=== PATIENT | male | born 1940 | race Caucasian/White ===

== ENCOUNTER 2017-11-23 11:26 | Inpatient (IN) | payer BC ==
[2017-11-23] MEDS: IV NORMAL SALINE 1000ML BAG 1,000 ML IV ×3 (12:28→20:20)
[2017-11-23 12:34] LABS: BASO % 0 % (0-3); EOS % 0 % (0-3); HEMATOCRIT 40.5 % (39.0-53.0); HEMOGLOBIN 13.4 g/dL (13.0-17.5); LYMPH # 0.4 x10^3/uL (1.0-4.8); LYMPH % 2 % (24-48); MEAN CORPUSCULAR HEMOGLOBIN 31 pg (25-35); MEAN CORPUSCULAR HGB CONC 33 g/dL (31-37); MEAN CORPUSCULAR VOLUME 93 fL (79-100); MONO # 0.5 x10^3/uL (0.0-1.1); MONO % 3 % (0-9); NEUT # 16.7 x10^3uL (1.8-7.7); NEUT % 95 % (31-73); PLATELET COUNT 229 x10^3/uL (140-400); RED BLOOD COUNT 4.35 x10^6/uL (4.30-5.70); RED CELL DISTRIBUTION WIDTH 14.5 % (11.5-14.5); WHITE BLOOD COUNT 17.6 x10^3/uL (4.0-11.0)
[2017-11-23 12:39] LABS: ADD MAN DIFF? YES
[2017-11-23 12:49] LABS: ANION GAP 11 (6-14); BLOOD UREA NITROGEN 27 mg/dL (8-26); BUN/CREATININE RATIO 21 (6-20); CALCIUM 9.2 mg/dL (8.5-10.1); CARBON DIOXIDE 26 mmol/L (21-32); CHLORIDE 101 mmol/L (98-107); CREATININE 1.3 mg/dL (0.7-1.3); GFR 53.8; GLUCOSE 140 mg/dL (70-99); POTASSIUM 3.6 mmol/L (3.5-5.1); SODIUM 138 mmol/L (136-145)
[2017-11-23 12:55] LABS: ALBUMIN 2.1 g/dL (3.4-5.0); ALBUMIN/GLOBULIN RATIO 0.4 (1.0-1.7); ALK PHOS 150 U/L (46-116); ALT (SGPT) 66 U/L (16-63); AST (SGOT) 80 U/L (15-37); LIPASE 239 U/L (73-393); TOTAL BILIRUBIN 2.2 mg/dL (0.2-1.0); TOTAL PROTEIN 7.3 g/dL (6.4-8.2)
[2017-11-23 12:58] LABS: CLARITY,URINE CLEAR; COLOR,URINE ORANGE; GLUCOSE,URINE NEGATIVE (NEG); NITRITE,URINE NEGATIVE (NEG); PH,URINE 5.5; PROTEIN,URINE 100 mg/dL (NEG-TRACE)
[2017-11-23 13:03] LABS: TROPONINI < 0.017 ng/mL (0.000-0.055)
[2017-11-23 13:08] LABS: SQUAMOUS EPITHELIAL CELL,UR OCC /LPF
[2017-11-23 13:12] LABS: INFLUENZA A PATIENT NEGATIVE (NEGATIVE); INFLUENZA B PATIENT NEGATIVE (NEGATIVE); OBC FLU VALID
[2017-11-23 13:15] LABS: BACTERIA,URINE FEW /HPF (0-FEW); RBC,URINE OCC /HPF (0-2)
[2017-11-23] MEDS ORDERED: CONTRAST GIVEN MC (13:15)
[2017-11-23 13:26] LABS: % BANDS 30 % (0-9); % LYMPHS 4 % (24-48); % MONOS 3 % (0-10); % SEGS 63 % (35-66); PLT ESTIMATE ADEQUATE (ADEQUATE)
[2017-11-23] MEDS ORDERED: ACETAMINOPHEN 325 MG TABLET. PO (13:30)
[2017-11-23] MEDS ORDERED: fentaNYL PF VIAL 100 MCG/2 ML VIAL IV (13:30)
[2017-11-23] MEDS ORDERED: ONDANSETRON PF 4 MG/2 ML VIAL. IV (13:30)
[2017-11-23] MEDS: IOHEXOL 300 MG/ML 100ML VIAL. IV (13:31)
[2017-11-23 13:37] LABS: LACTIC ACID 1.8 mmol/L (0.4-2.0)
[2017-11-23] MEDS: AZITHRMYCN 500MG IVPB FOR OMNI 250 ML IV (14:21)
[2017-11-23 15:56] LABS: LACTIC ACID 1.7 mmol/L (0.4-2.0)
[2017-11-23] MEDS ORDERED: HYDROcodone/APAP 5/325MG 1 TAB TABLET PO (19:30)
[2017-11-23] MEDS: KETOROLAC 15 MG/ML VIAL. IV (20:33)
[2017-11-23] MEDS: methylPREDNISolone SOD SUCC PF 125 MG/2 ML VIAL. IV (21:45)
[2017-11-24] MEDS: IV NORMAL SALINE 1000ML BAG 1,000 ML IV (01:19)
[2017-11-24 05:12] LABS: ADD MAN DIFF? NO
[2017-11-24 05:18] LABS: BASO % 0 % (0-3); EOS % 0 % (0-3); HEMATOCRIT 36.7 % (39.0-53.0); HEMOGLOBIN 12.2 g/dL (13.0-17.5); LYMPH # 0.6 x10^3/uL (1.0-4.8); LYMPH % 4 % (24-48); MEAN CORPUSCULAR HEMOGLOBIN 31 pg (25-35); MEAN CORPUSCULAR HGB CONC 33 g/dL (31-37); MEAN CORPUSCULAR VOLUME 94 fL (79-100); MONO # 0.5 x10^3/uL (0.0-1.1); MONO % 3 % (0-9); NEUT # 15.7 x10^3uL (1.8-7.7); NEUT % 93 % (31-73); PLATELET COUNT 211 x10^3/uL (140-400); RED BLOOD COUNT 3.89 x10^6/uL (4.30-5.70); RED CELL DISTRIBUTION WIDTH 15.1 % (11.5-14.5); WHITE BLOOD COUNT 16.9 x10^3/uL (4.0-11.0)
[2017-11-24 05:49] LABS: ALBUMIN 1.7 g/dL (3.4-5.0); ALBUMIN/GLOBULIN RATIO 0.4 (1.0-1.7); ALK PHOS 134 U/L (46-116); ALT (SGPT) 64 U/L (16-63); ANION GAP 9 (6-14); AST (SGOT) 71 U/L (15-37); BLOOD UREA NITROGEN 26 mg/dL (8-26); BUN/CREATININE RATIO 26 (6-20); CALCIUM 8.3 mg/dL (8.5-10.1); CARBON DIOXIDE 26 mmol/L (21-32); CHLORIDE 106 mmol/L (98-107); GFR 72.8; GLUCOSE 149 mg/dL (70-99); POTASSIUM 3.6 mmol/L (3.5-5.1); SODIUM 141 mmol/L (136-145); TOTAL BILIRUBIN 1.6 mg/dL (0.2-1.0); TOTAL PROTEIN 6.1 g/dL (6.4-8.2)
[2017-11-24] MEDS: methylPREDNISolone SOD SUCC PF 125 MG/2 ML VIAL. IV (05:55)
[2017-11-24] MEDS: methylPREDNISolone SOD SUCC PF 40 MG/ML VIAL. IV ×2 (09:09→21:10)
[2017-11-24] MEDS: cefTRIAXone IV Push 1 GM VIAL. IVP (12:49)
[2017-11-24] MEDS: AZITHROMYCIN 250 MG TABLET. PO (15:47)
[2017-11-25 02:20] LABS: HEMOGLOBIN A1C 5.1 % (4.8-5.6)
[2017-11-25 06:48] LABS: ALBUMIN 1.7 g/dL (3.4-5.0); ALK PHOS 118 U/L (46-116); ALT (SGPT) 63 U/L (16-63); AST (SGOT) 57 U/L (15-37); DIRECT BILIRUBIN 0.4 mg/dL (0.0-0.2); TOTAL BILIRUBIN 0.5 mg/dL (0.2-1.0); TOTAL PROTEIN 6.4 g/dL (6.4-8.2)
[2017-11-25] MEDS: methylPREDNISolone SOD SUCC PF 40 MG/ML VIAL. IV (08:12)
[2017-11-25] MEDS: predniSONE 10 MG TABLET PO (09:18)
[2017-11-25] MEDS: cefTRIAXone IV Push 1 GM VIAL. IVP (12:25)
[2017-11-25] MEDS: AZITHROMYCIN 250 MG TABLET. PO (17:09)
[2017-11-25] MEDS: LACTOBACILLUS RHAMNOSUS GG 1 CAPSULE. PO (21:51)
[2017-11-26] MEDS: LACTOBACILLUS RHAMNOSUS GG 1 CAPSULE. PO (08:46)
[2017-11-26] MEDS: predniSONE 10 MG TABLET PO (08:47)
[2017-11-26] MEDS: cefTRIAXone IV Push 1 GM VIAL. IVP (14:00)
== END 2017-11-26 15:10 | disposition home or self-care (01) | DRG 177 ==
LOC: ER 11:26 → 5 SOUTH 13:22
DX: J15.6 Pneumonia due to other Gram-negative bacteria (principal); J96.00 Acute respiratory failure, unspecified whether with hypoxia or hypercapnia; G92 Toxic encephalopathy; J44.0 Chronic obstructive pulmonary disease with (acute) lower respiratory infection; E27.9 Disorder of adrenal gland, unspecified; F17.210 Nicotine dependence, cigarettes, uncomplicated; K76.0 Fatty (change of) liver, not elsewhere classified; R09.1 Pleurisy; Z71.6 Tobacco abuse counseling
CPT/HCPCS: 36415; 71046; 74177; 76705; 80053; 80076; 81001; 83036; 83605; 83690; 84484; 85007; 85025; 87040; 87086; 87804; 87804-59; 93005; 94618; 96374; 96375; 97110-GP; 97116-GP; 97162-GP; 99285; 99285-25; J0456; J0690; J0696; J1885; J2920; J2930; J7030; J7512; Q0144; Q9967

== ENCOUNTER → 2019-03-15 | Outpatient (CLI) | payer BC ==
[2017-11-26 11:00] VITALS: BP 112/77
[~2019-03-15] MED LIST: ALBU2.5V8 INH; LEVO500T59 PO; PRED-220 PO
--- NOTE | 2019-03-15 17:57 | RAD ---
AP view the pelvis and frog-leg view of the left hip Clinical indications: Hip pain. No known injury. FINDINGS: No acute fracture or dislocation or lytic process is evident. The hip joints are symmetric. No significant arthritic change is evident. IMPRESSION: No acute osseous abnormality. Electronically signed by: Dima Rockwell MD (03/15/2019 5:54 PM) [id number]
--- NOTE | 2019-03-15 18:10 | RAD ---
Examination: LUMBAR SPINE 2-3V History: Left leg pain Comparison/Correlation: None Findings: Frontal and lateral views of the lumbar spine were obtained. Dextroconvex rotoscoliosis of the lumbar spine is present. Severe disc space narrowing from L1 to L3 is present. Spurring at multiple levels of the lumbar spine noted. Moderate L5/S1 disc space narrowing also is present. Facet joint degenerative changes of the lumbar spine is present. No fracture or bony destruction. Slight retrolisthesis of the lumbar spine at L1-2, L2-3, and L3-4. Impression: Scoliosis and advanced degenerative changes. Electronically signed by: Levar Buenrostro MD (03/15/2019 6:07 PM) [facility]
== END | disposition home or self-care (01) ==
LOC: RAD 10:36
PROVIDERS: ATTEND Nurse Practitioner Gerontology
DX: M41.86 Other forms of scoliosis, lumbar region (principal); M48.061 Spinal stenosis, lumbar region without neurogenic claudication; M25.552 Pain in left hip
CPT/HCPCS: 72100; 73501